=== PATIENT | female | born 1980 | race Two or more races ===

== ENCOUNTER 2024-06-21 11:06 | Emergency (ER) | payer BC ==
[~2024-06-21] VITALS: Ht 165.1 cm; Wt 74.8 kg
[2024-06-21 11:17] VITALS: BP 126/70; TEMP 98.3
[2024-06-21] MEDS ORDERED: IBUP-1490 PO (11:37)
[2024-06-21 11:50] VITALS: O2SAT 100
== END 2024-06-21 11:50 | disposition home or self-care (01) ==
LOC: ER 11:12
DX: M53.3 Sacrococcygeal disorders, not elsewhere classified (principal); V49.40XA Driver injured in collision with unspecified motor vehicles in traffic accident, initial encounter; Y93.89 Activity, other specified; Y92.89 Other specified places as the place of occurrence of the external cause; Y99.8 Other external cause status